=== PATIENT | female | born 1975 | race Caucasian/White ===

== ENCOUNTER → 2020-01-30 16:08 | Outpatient (CLI) | payer OTHER, SELFPAY ==
--- NOTE | ~2020-01-30 | MM_ITS ---
EXAMINATION: MM screening juliano BI w saniya HISTORY: Screening mammogram TECHNIQUE: Craniocaudal and mediolateral oblique 3-D tomosynthesis images were obtained and synthetic 2-D images were generated. CAD analysis was submitted and interpreted. COMPARISON: 09/07/2018, 03/18/2016 bilateral digital screening mammogram examinations BREAST PARENCHYMAL COMPOSITION: There are scattered areas of fibroglandular density. FINDINGS: Occasional small circumscribed low-density opacities with benign mammographic features, sta ble since 09/17/2018. There is no evidence of suspicious mass, calcification, or architectural distor tion to suggest malignancy in either breast. There has been no suspicious interval change. IMPRESSION: 1. No mammographic evidence of malignancy. 2. Recommend routine screening mammography in one year. BI-RADS Category 2: Benign finding(s). Reviewed, dictated and finalized at location A. T TAKER
== END ==
PROVIDERS: Visit Provider Nurse Practitioner Obstetrics & Gynecology
DX: Z12.31 Encounter for screening mammogram for malignant neoplasm of breast (principal)
CPT/HCPCS: 77063; 77067

== ENCOUNTER 2020-11-16 11:58 | Emergency (ER) | payer OTHER, SELFPAY ==
--- NOTE | ~2020-11-16 | XR_ITS ---
XR hand LT min 3V 11/16/2020 12:22 Indication: Left hand pain Procedure: 3 views left hand Comparison: 11/04/2015 Findings: There are degenerative changes of the first CMC, MCP and radiocarpal joints. No fracture, s ubluxation or dislocation. No significant soft tissue abnormality. Impression: 1: No acute bone or joint abnormality. 2: Mild-moderate polyarticular osteoarthritis. Reviewed, dictated and finalized at location A. ISSIONING SPECIALIST Impression: 1: No acute bone or joint abnormality. 2: Mild-moderate polyarticular osteoarthritis.
[2020-11-16 12:05] VITALS: BP 141/74; PULSE 81; RESP 20; TEMP 36.8; O2SAT 100
--- NOTE | 2020-11-16 12:42 | ED.UPPEXIN ---
HPI - Extremity Injury (Upper) General Chief Complaint: Extremity Injury, Upper Stated Complaint: left thumb injury Time Seen by Provider: 11/16/20 12:33 Source: patient and RN notes reviewed Mode of arrival: ambulatory Limitations: no limitations History of Present Illness HPI narrative: Patient presents today with a left thumb injury. States it was hyperextended yesterday while playing with her dog. Denies numbness or tingling in the finger. Currently rates her pain 6/10 and states she wrapped her hand in an David wrap yesterday and took ibuprofen without relief. Previous fracture in multiple places to the same finger several years ago. Related Data Home Medications Medication Instructions Recorded Confirmed levothyroxine [Synthroid] 50 mcg DAILY 11/16/20 11/16/20 Allergies Allergy/AdvReac Type Severity Reaction Status Date / Time No Known Allergies Allergy Verified 11/16/20 12:06 Review of Systems Review of Systems: Narrative: CONSTITUTIONAL: Denies body aches, fever, chills, or sweats. EYES: Denies visual changes, redness, or discharge. ENT: Denies rhinorrhea, congestion, sore throat, or otalgia. CARDIOVASCULAR: Denies chest pain, palpitations, or edema. RESPIRATORY: Denies cough or dyspnea. GASTROINTESTINAL: Denies abdominal pain, nausea, vomiting, or diarrhea. GENITOURINARY: Denies dysuria or hematuria. SKIN: Denies rash, itching, or wounds. MUSCULOSKELETAL: Denies back pain, or myalgia. + Left thumb injury NEUROLOGIC: Denies headache, numbness, tingling, or weakness. PSYCH: Denies depression or anxiety. PMFSH Family History Family History (Updated 06/27/16 @ 23:19 by DOCTOR UNKNOWN) Grandparent Family history of malignant neoplasm of breast Social History Social History Smoking status: Current every day smoker Alcohol intake: current Gender identity (if verbalized by the patient): Female Comments At time of signature, I have reviewed and agree with nursing past medical, surgical, social and family history unless otherwise noted. Please see nursing chart for further information. There is no relevant family history pertinent to the presenting complaint Exam Narrative: Exam Narrative: GENERAL: Well-appearing, well-nourished, and in no acute distress. HEAD: Normocephalic, atraumatic. EYES: EOMI. No redness or drainage. Conjunctivae normal. ENT: Mucous membranes pink and moist. NECK: Normal AROM. CHEST: No respiratory distress. EXTREMITIES: Left thumb: Tenderness to the MCP joint with mild swelling and ecchymosis. PROM without pain, but AROM limited due to pain. No pain to IP joint. Distal sensation intact. Capillary refill normal. Radial pulse normal. SKIN: Warm, dry, no rash. Capillary refill normal. Normal skin turgor. NEURO: No focal deficits. Alert and oriented x3. Gait steady. PSYCH: Normal affect. No signs of depression or anxiety. Course Vital Signs Vital signs: Vital Signs Temperature 98.3 F 11/16/20 12:05 Pulse Rate 81 11/16/20 12:05 Respiratory Rate 20 11/16/20 12:05 Blood Pressure 141/74 H 11/16/20 12:05 Pulse Oximetry 100 11/16/20 12:05 Temperature 98.3 F 11/16/20 12:05 Pulse Rate 81 11/16/20 12:05 Respiratory Rate 20 11/16/20 12:05 Blood Pressure 141/74 H 11/16/20 12:05 Pulse Oximetry 100 11/16/20 12:05 Reviewed. Pt has been instructed to follow up with her PCP regarding her elevated blood pressure today. MDM - Extremity Injury (Upper) Differential Diagnosis Differential diagnosis: Likely finger sprain, dislocation of finger, fracture of hand and other (Finger fracture) Imaging Data Radiologist's impression: ITS Impressions Hand X-Ray 11/16/20 12:25 Impression: 1: No acute bone or joint abnormality. 2: Mild-moderate polyarticular osteoarthritis. Critical Care Time Critical Care Time Critical Care Time: No Discharge Plan Discharge Clinical Impression: Left thumb sprain Qualifiers: Enco
== END 2020-11-16 12:50 | disposition home or self-care (01) ==
PROVIDERS: Emergency Provider Nurse Practitioner; PCP Family Medicine
DX: S63.622A Sprain of interphalangeal joint of left thumb, initial encounter (principal); X50.9XXA Other and unspecified overexertion or strenuous movements or postures, initial encounter; F17.200 Nicotine dependence, unspecified, uncomplicated
CPT/HCPCS: 29130; 73130; 99213; G0463

== ENCOUNTER 2022-04-07 10:01 | Emergency (ER) | payer OTHER, SELFPAY ==
--- NOTE | ~2022-04-07 | XR_ITS ---
EXAMINATION: XR foot RT min 3V DATE: 04/07/2022 10:36 INDICATION: Right foot pain, initial encounter TECHNIQUE: Dorsoplantar, lateral, and oblique views of the right foot were obtained. COMPARISON: 11/04/2015 FINDINGS: There is an oblique lucency at the lateral base of the fifth metatarsal which extends to be joint space. There is mild osteoarthritis of several interphalangeal joints. The bones are otherwise unremarkable. The soft tissues are unremarkable. A plantar calcaneal enthesophyte is noted. IMPRESSION: 1. Oblique lucency of the lateral base of the fifth metatarsal extending to the joint space consisten t with fracture. Clinically correlate for tenderness at this site as there is no evident associated s oft tissue swelling. Reviewed, dictated and finalized at location A. IMPRESSION: 1. Oblique lucency of the lateral base of the fifth metatarsal extending to the joint space consistent with fracture. Clinically correlate for tenderness at t his site as there is no evident associated soft tissue swelling.
[2022-04-07 10:25] VITALS: BP 136/91; PULSE 77; RESP 16; TEMP 36.1
--- NOTE | 2022-04-07 10:25 | ED.LOWEXIN ---
HPI - Extremity Injury (Lower) General Chief Complaint: Extremity Injury, Lower Stated Complaint: rt foot injury,fell Time Seen by Provider: 04/07/22 10:25 Source: patient Mode of arrival: ambulatory Limitations: no limitations History of Present Illness HPI Narrative: 47-year-old female presents with complaint of pain and swelling to right foot. Reports yesterday she was stepping over her dog that was laying in the hallway and her foot slid out of her wedge shoe and caused her to fall. Reports pain to lateral aspect of right foot. Bruising noted. Range of motion and distally neurovascularly intact. Patient presents with postop shoe that she brought from her . States that it is not fitting appropriately. All systems reviewed and negative except as noted above. Related Data Home Medications Medication Instructions Recorded Confirmed levothyroxine [Synthroid] 50 mcg DAILY 11/16/20 04/07/22 Allergies Allergy/AdvReac Type Severity Reaction Status Date / Time No Known Allergies Allergy Verified 04/07/22 10:12 Review of Systems Review of Systems: CONSTITUTIONAL: Denies fever, chills, or sweats. EYES: Denies visual changes, redness, or discharge. ENT: Denies rhinorrhea, congestion, sore throat, or otalgia. CARDIOVASCULAR: Denies chest pain, palpitations, or edema. RESPIRATORY: Denies cough or dyspnea. GASTROINTESTINAL: Denies abdominal pain, nausea, vomiting, or diarrhea. GENITOURINARY: Denies dysuria or hematuria. SKIN: Denies rash or itching. MUSCULOSKELETAL: Reports pain and swelling to lateral aspect of right foot. NEUROLOGIC: Denies headache, numbness, or weakness. PSYCHIATRIC: Denies anxiety or depression. All other systems reviewed are negative, except as documented in HPI. [facility] Family History Family History (Updated 06/27/16 @ 23:19 by DOCTOR UNKNOWN) Grandparent Family history of malignant neoplasm of breast Social History Social History Smoking status: Current every day smoker Alcohol intake: current Gender identity (if verbalized by the patient): Female Comments At time of signature, agree with nursing past medical, surgical, social and family history. There is no relevant family history pertinent to the presenting complaint. Exam Narrative: GENERAL: This is a well-nourished, well-developed patient, in no apparent distress. HEAD: normocephalic, atraumatic. EYES: PERRL. Sclera clear/white. Vision is grossly intact. EARS: External ears normal NOSE: External nose normal NECK: Neck supple, non-tender without lymphadenopathy, masses or thyromegaly. CARDIOVASCULAR: Regular rate and rhythm without murmurs, gallops, or rubs. RESPIRATORY: Clear to auscultation. Breath sounds equal bilaterally. No wheezes, rales, or rhonchi. SKIN: warm, Dry, intact with no suspicious lesions or rash, good texture and turgor. NEURO: awake, alert, and oriented to person, place and time. There were no obvious focal neurologic abnormalities. EXTREMITIES: Swelling and bruising to dorsal and lateral aspect of right foot. There is tenderness to the proximal aspect of the right fifth metatarsal bone. Range of motion intact to right foot and right ankle. Course Course Level of Care: Express Care Visit Vital Signs Vital signs: Reviewed MDM - Extremity Injury (Lower) Lab Data Labs: Discussed x-ray results with patient. Patient given disc with images. Referred to orthopedics. Postop shoe placed by DURAN Galeano. Patient has crutches at home. Patient is aware of diagnosis, understands and agrees to treatment plan. Anticipatory guidance given. Patient agrees to follow-up as directed and is aware of reasons to seek care at the emergency department. Portions of this record may have been created with voice recognition software Imaging Data Attestation: I personally reviewed and interpreted this imaging study as follows: My impression: Agree with radiologist Radiologist's impression: EXAMINATION: XR foot RT
== END 2022-04-07 11:12 | disposition home or self-care (01) ==
PROVIDERS: Emergency Provider Nurse Practitioner Family; PCP Family Medicine
DX: S92.351A Displaced fracture of fifth metatarsal bone, right foot, initial encounter for closed fracture (principal); F17.200 Nicotine dependence, unspecified, uncomplicated; W01.0XXA Fall on same level from slipping, tripping and stumbling without subsequent striking against object, initial encounter
CPT/HCPCS: 73630; 99214; G0463

== ENCOUNTER 2022-06-13 15:40 | Emergency (ER) | payer OTHER, SELFPAY ==
--- NOTE | ~2022-06-13 | XR_ITS ---
XR hand RT min 3V DATE: 06/13/2022 16:20 INDICATION: Distal first digit bitten by dog TECHNIQUE: 3 views COMPARISON: None FINDINGS: Minimal irregularity of the soft tissues of the distal aspect of the first digit. No subcut aneous emphysema or radiopaque soft tissue foreign body is detected. No fracture, dislocation, perios teal reaction or bone destruction. IMPRESSION: Minimal soft tissue irregularity of the distal aspect of the first digit; otherwise no si gnificant radiographic abnormality Reviewed, dictated and finalized at location A. IMPRESSION: Minimal soft tissue irregularity of the distal aspect of the first digit; otherwise no significant radiographic abnormality
[2022-06-13 15:42] VITALS: BP 133/85; PULSE 95; RESP 16; TEMP 36.4; O2SAT 100
[2022-06-13] MEDS: fentaNYL CITRATE INJ (*CRX) 100 MCG/2 ML VIAL 50 MCG IV PUSH (16:09)
--- NOTE | 2022-06-13 16:25 | ED.UPPEXIN ---
HPI - Extremity Injury (Upper) General Chief Complaint: Extremity Injury, Upper Stated Complaint: right thumb injury Time Seen by Provider: 06/13/22 15:56 History of Present Illness HPI narrative: This is a 47-year-old female who presents to the emergency department with dog bite wound to the right thumb. The patient states about 20 minutes prior to arrival, her dogs were fighting, she attempted to break up the dogs, and one bit her right thumb. The nail and end of the finger was torn off. She complains of 8 out of 10, sharp pain, worsened with pressure, without radiation or alleviating factors Her bleeding was immediately controlled by direct pressure. Her wrapped the torn off end of the thumb and brought out with them. She states both dogs are fully vaccinated. She is not sure of the timing of her last tetanus shot. She denies fall, head trauma, loss of consciousness, and denies pain anywhere else. Related Data Home Medications Medication Instructions Recorded Confirmed levothyroxine 50 mcg tablet 50 mcg DAILY 11/16/20 04/07/22 (Synthroid) Allergies Allergy/AdvReac Type Severity Reaction Status Date / Time No Known Allergies Allergy Verified 06/13/22 15:54 Review of Systems Review of Systems: CONSTITUTIONAL: Denies fever, chills, or sweats. EYES: Denies visual changes, redness, or discharge. ENT: Denies rhinorrhea, congestion, sore throat, or otalgia. CARDIOVASCULAR: Denies chest pain, palpitations, or edema. RESPIRATORY: Denies cough or dyspnea. GASTROINTESTINAL: Denies abdominal pain, nausea, vomiting, or diarrhea. GENITOURINARY: Denies dysuria or hematuria. SKIN: Denies rash or itching. MUSCULOSKELETAL: Right thumb pain, denies myalgia. NEUROLOGIC: Denies headache, numbness, dizziness, or weakness. PSYCHIATRIC: Denies anxiety or depression. [facility] Past Medical History Medical History (Updated 06/13/22 @ 23:17 by Johnson Jean-Baptiste MD) Acquired hypothyroidism Acute non-recurrent maxillary sinusitis Body mass index [BMI] 32.0-32.9, adult (05/28/18) Compulsive overeating Dietary counseling and surveillance (05/28/18) SEDRICK (generalized anxiety disorder) GERD with esophagitis Lipid screening Other fatigue Weight gain Family History Family History (Updated 06/27/16 @ 23:19 by DOCTOR UNKNOWN) Grandparent Family history of malignant neoplasm of breast Social History Social History (Updated 06/13/22 @ 23:17 by Johnson Jean-Baptiste MD) Smoking status: Current every day smoker Alcohol intake: current Substance use type: does not use Gender identity (if verbalized by the patient): Female Exam Narrative: GENERAL: Well-appearing, well-nourished, and in no acute distress. HEAD: Normocephalic, atraumatic. EYES: PERRLA and EOMI. ENT: Nares clear, no rhinorrhea or epistaxis. Mucous membranes moist. Oropharynx without tonsillar hypertrophy exudate or other lesions. Bilateral TMs pearly nigram nonbulging NECK: Supple. No adenopathy or masses. No carotid bruits or JVD CHEST: Clear to auscultation. No respiratory distress. No wheezes rales or rhonchi HEART: Regular rate and rhythm. No murmur heard. Normal peripheral pulses. ABDOMEN: Soft, nontender, nondistended, normal active bowel sounds. EXTREMITIES: Avulsion of the tissue of the end of the right thumb, transecting across the middle of fingernail. No noted injury to the nail matrix. Small amount of bleeding noted with exposed bone at the distal phalanx. Normal range of motion. No edema. SKIN: Warm, dry, no rash. NEURO: No focal deficits. Alert and oriented x3. PSYCH: Normal mood and affect. Course Course Emergency Course: 17:00 - Discussed patient with on-call consultation, Dr. Kelly. Discussed management options including suturing of avulsed skin and nail as a biopatch. This was agreed to as the plan. Will discharge after repair with antibiotics and follow-up in plastic surgery. 18:23 - The patient tolerated suturing well. Pl
[2022-06-13] MEDS: ceFAZolin 2 GM/D5W 50 ML 2 GM/50 ML BAG IVPB (16:36)
[2022-06-13] MEDS: TETANUS,DIPHTHERIA,AC PERTUSSIS ADULT (0.5 ML) BOOSTRIX IM (16:36)
[2022-06-13] MEDS: HYDROmorphone HCL INJ (*CRX) 1 MG/ML SYR IM (17:01)
[2022-06-13] MEDS: LIDOCAINE HCL 1% PF 30 ML VIAL (17:11)
[2022-06-13 18:33] VITALS: BP 132/78; PULSE 76; RESP 16; TEMP 36.3; O2SAT 100
== END 2022-06-13 18:34 | disposition home or self-care (01) ==
PROVIDERS: Emergency Provider Preventive Medicine Aerospace Medicine; PCP Family Medicine
DX: S61.151A Open bite of right thumb with damage to nail, initial encounter (principal); Z23 Encounter for immunization; E03.9 Hypothyroidism, unspecified; K21.00 Gastro-esophageal reflux disease with esophagitis, without bleeding; F17.200 Nicotine dependence, unspecified, uncomplicated; W54.0XXA Bitten by dog, initial encounter
CPT/HCPCS: 12001; 73130; 90471; 90715; 96365; 96372; 96375; 99284; J0690; J1170; J3010

== ENCOUNTER → 2023-04-28 15:54 | Outpatient (CLI) | payer BC, SELFPAY ==
--- NOTE | ~2023-04-28 | MM_ITS ---
EXAMINATION: MM screening juliano BI w saniya HISTORY: Screening mammogram TECHNIQUE: Craniocaudal and mediolateral oblique 3-D tomosynthesis images were obtained and synthetic 2-D images were generated. CAD analysis was submitted and interpreted. COMPARISON: 01/30/2020, 09/07/2018, 03/18/2016 and lateral screening mammogram examinations BREAST PARENCHYMAL COMPOSITION: There are scattered areas of fibroglandular density. FINDINGS: There is no evidence of suspicious mass, calcification, or architectural distortion to sugg est malignancy in either breast. There has been no suspicious interval change. IMPRESSION: 1. No mammographic evidence of malignancy. 2. Recommend routine screening mammography in one year. BI-RADS Category 1: Negative Reviewed, dictated and finalized at location A.
== END ==
PROVIDERS: PCP Family Medicine; Visit Provider Nurse Practitioner Obstetrics & Gynecology
DX: Z12.31 Encounter for screening mammogram for malignant neoplasm of breast (principal)
CPT/HCPCS: 77063; 77067

== ENCOUNTER 2023-06-24 09:28 | Outpatient (CLI) | payer BC, SELFPAY ==
[2023-06-24 10:07] LABS: Hematocrit 41.6 % (37.0-47.0); Hemoglobin 14.2 g/dL (12.0-15.0)
== END 2023-06-24 09:29 | disposition home or self-care (01) ==
LOC: ANHLAB 09:29
PROVIDERS: PCP Family Medicine; Visit Provider Obstetrics & Gynecology
DX: R58 Hemorrhage, not elsewhere classified (principal)
CPT/HCPCS: 36415; 85014; 85018

== ENCOUNTER 2023-06-26 02:33 | Day surgery (SDC) | payer BC, SELFPAY ==
--- NOTE | 2023-06-19 16:50 | PC.NURSE ---
Report to the Outpatient Waiting Room, entrance under the green pavilion located off [facility], at 0730 on 06-26-23. Planned Procedure Time: 0930. Time changes happen often and if your time is changed the preop area will call you the afternoon before. - You and your visitor will be asked to self-screen and do not enter if you have any COVID symptoms. - A mask is optional within the hospital at this time. Patients may have clear liquids (water, carbonated beverages, clear teas, apple juice) until 3 hours prior to surgery with a maximum of 20 ounces. 0630 - No food from midnight until time of surgery - Infants may have breast milk until 4 hours before surgery, formula 6 hours prior to surgery. - Children will be allowed to drink immediately following surgery. If applicable, please bring a bottle or sippy cup to assist with drinking. Juice, water, soda, and popsicles are readily available. For infants on formula, please bring formula the day of surgery. Pacifiers are allowed. Take the following medications with a SIP of water the morning of surgery: levothyroxine DO NOT STOP ANY OF YOUR OTHER PRESCRIPTION MEDICATIONS PRIOR TO SURGERY ?EXCEPT THE FOLLOWING Medications to discontinue per physician: vitamins and supplements Date to take last dose: 06-23-23 Please no make-up, nail arabic, hairspray, perfume, deodorant, or body powder the day of surgery. No jewelry (including any body piercings) or valuables the day of surgery, leave them at home. Please take a shower or bath the night before, or the morning of, surgery with an antibacterial soap. Wear comfortable, loose fitting clothing. Children are encouraged to wear pajamas. - Jewelry must be removed prior to entering the operating room. Rings and piercings that are not removed may be cut off. - The hospital will not accept responsibility for valuables. - Please leave all valuables, including medications, at home the day of surgery. If you are going home after surgery, a licensed funeral limousine driver must drive you home. - NO public transportation without another adult if you receive anesthesia. - We recommend that an adult stay with you for 24 hours following discharge. - We also recommend that you do not drive, make important decision, drink alcoholic beverages, or take any drugs that were not prescribed by your health care provider for at least 24 hours after your discharge time. For Pediatric surgeries, we recommend two adults accompany the child home. Follow any additional instructions given to you from your surgeon. If you or anyone in your household have experienced Covid symptoms in the past week, please notify your surgeon or the nurse liaison at the phone number below for possible testing. Telephone instructions given to Christin Montes De Oca and asked if any additional questions and then verbalized understanding. Patient advised to call surgeon office or pre surgery nurse liaison [phone] if any additional questions.
--- NOTE | 2023-06-23 16:33 | PM.IMHP ---
H&P: HPI History of Present Illness Date/Time: 06/23/23 16:33 Chief Complaint: excessive vaginal bleeding Narrative: this is a 40 2 para 2 admitted for hysteroscopy D&C and ablation. She had extremely heavy periods. She had an ultrasound that showed thickened endometrium. She had a negative endometrial biopsy. Risks and benefits reviewed including not exclusive of , aspiration pneumonia, bleeding, transfusion, perforation under bowel, bladder, ureters, or other internal organs the need for open laparotomy. She received the ACOG handouts entitled hysteroscopy as well as dilatation curettage respectively. She received the Estrella handout. She had all questions answered and asked to proceed PMFSH Past Medical History Medical History Acquired hypothyroidism Acute non-recurrent maxillary sinusitis Body mass index [BMI] 32.0-32.9, adult (05/28/18) Compulsive overeating Dietary counseling and surveillance (05/28/18) SEDRICK (generalized anxiety disorder) GERD with esophagitis Lipid screening Other fatigue Weight gain Family History Family History Grandparent Family history of malignant neoplasm of breast Social History Social History Social History: Smoking packs per day: 0.25 Smoking cigarettes per day: 5.0 Years smoked: 5 Smoking pack-years: 1.25 Smoking status: Former smoker Tobacco type: cigarettes Second hand tobacco smoke exposure: No Smoking end date: 11/30/17 Alcohol intake: current Drinks per week: 2 Alcohol use details: occasionally Substance use: current Substance use type: marijuana Other substance usage details: gummies occasionally Living arrangements: with family Occupation/Education: occupation Gender identity (if verbalized by the patient): Female Sexual Orientation (if Verbalized by the Patient): Straight or Heterosexual Spiritual care concerns: No Meds Home Medications and Allergies Home Medications Medication Instructions Recorded Confirmed Type levothyroxine 50 mcg tablet 50 mcg PO DAILY 11/16/20 06/19/23 History (Synthroid) Lactobacillus 1 cap PO DAILY 06/19/23 06/19/23 History acidophilus-Bifidobac.animalis 2.5 billion cell capsule (Daily Probiotic) [id number] 200 mcg-vit K 100 1 cap PO DAILY 06/19/23 06/19/23 History mcg-lycop 500 [id number] capsule (Daily Multivitamin) tumeric 100 mg-jorge 150 mg-olive 1 cap PO DAILY 06/19/23 06/19/23 History 50 mg-oreg 150 mg-caprylate capsule vitamin B complex 1 tablet PO DAILY 06/19/23 06/19/23 History Allergies Allergy/AdvReac Type Severity Reaction Status Date / Time No Known Allergies Allergy Verified 06/19/23 16:19 Exam Const: General: cooperative, healthy appearing and comfortable Nutritional Appearance: average body habitus Orientation/consciousness: oriented to person, oriented to place and oriented to time Resp: Effort & Inspection: normal respiratory effort Cardio: Rate: regular rate Rhythm: regular rhythm Heart sounds: S1 normal heart sound present and S2 normal heart sound present GI: Inspection: normal to inspection : External Female Exam: normal external appearance Speculum Exam - Vagina: normal appearance of the vagina Speculum Exam - Cervix: normal appearance of the cervix Bimanual exam- vagina & uterus: non-tender Bimanual Exam- Adnexa, other: normal adnexae Assessment and Plan Assessment and plan (1) Vaginal bleeding: Code(s): N93.9 - Abnormal uterine and vaginal bleeding, unspecified Status: Acute Plan hysteroscopy/ dilatation curettage/Estrella ablation
--- NOTE | 2023-06-25 08:43 | WPDANESEPPF ---
Anes - Initial Pre Proc Eval Procedure: Operation Date: 06/26/23 09:30 Proposed Procedures p Hysteroscopy Dilation and Curettage, Estrella Endometrial Ablation - Andrew Eller MD Date/Time: 06/25/23 08:43 Surgeon: Andrew Eller MD Pre Op Diagnosis: Excessive Bleeding Patient Data Age: 48 Gender: F Height: Weight: Allergies Allergy/AdvReac Type Severity Reaction Status Date / Time No Known Allergies Allergy Verified 06/19/23 16:19 Home Medications Medication Instructions Recorded Confirmed Type levothyroxine 50 mcg tablet 50 mcg PO DAILY 11/16/20 06/26/23 History (Synthroid) Lactobacillus 1 cap PO DAILY 06/19/23 06/26/23 History acidophilus-Bifidobac.animalis 2.5 billion cell capsule (Daily Probiotic) [id number] 200 mcg-vit K 100 1 cap PO DAILY 06/19/23 06/26/23 History mcg-lycop 500 [id number]-hvrtaz-N40 capsule (Daily Multivitamin) tumeric 100 mg-jorge 150 mg-olive 1 cap PO DAILY 06/19/23 06/26/23 History 50 mg-oreg 150 mg-caprylate capsule vitamin B complex 1 tablet PO DAILY 06/19/23 06/26/23 History hydrocodone 5 mg-acetaminophen 325 1 tablet PO Q4H PRN pain #20 tabs 06/26/23 Rx mg tablet Patient hx anesthesia problems: none Family hx anesthesia problems: none Results Review: All pre-operative results and documents have been reviewed as part of the pre-operative evaluation. [facility] Past Medical History Medical History Acquired hypothyroidism Acute non-recurrent maxillary sinusitis Body mass index [BMI] 32.0-32.9, adult (05/28/18) Compulsive overeating Dietary counseling and surveillance (05/28/18) SEDRICK (generalized anxiety disorder) GERD with esophagitis Lipid screening Other fatigue Weight gain Family History Family History Grandparent Family history of malignant neoplasm of breast Social History Social History Social History: Smoking packs per day: 0.25 Smoking cigarettes per day: 5.0 Years smoked: 5 Smoking pack-years: 1.25 Smoking status: Former smoker Tobacco type: cigarettes Second hand tobacco smoke exposure: No Smoking end date: 11/30/17 Alcohol intake: current Drinks per week: 2 Alcohol use details: occasionally Substance use: current Substance use type: marijuana Other substance usage details: gummies occasionally Living arrangements: with family Occupation/Education: occupation Gender identity (if verbalized by the patient): Female Sexual Orientation (if Verbalized by the Patient): Straight or Heterosexual Spiritual care concerns: No Anes - Eval Final PreProcedure Day of Procedure 06/25/23 08:43 Patient weight: obese Heart: regular rate and rhythm Lungs: clear to auscultation Airway: Mallampati scale class II Neurological: alert and oriented Last oral intake: >/= 8 hours ASA classification: II Emergent: no Anesthetic plan: proceed Anesthesia type and monitoring: general GIVS and standard monitoring Results Review: All pre-operative results and documents have been reviewed as part of the pre-operative evaluation. Informed Consent: The patient's anesthetic plan and its attendant risks and benefits were discussed with the patient/family/POA. Questions were solicited and answers provided to the satisfaction of the patient/family/POA.
--- NOTE | 2023-06-26 07:18 | WPDHPUPDATE1 ---
History and Physical Update Update Date/Time: 06/26/23 07:18 History and Physical has been reviewed, including an updated exam of the patient. There are NO changes in the patient's condition. Risks, benefits, and alternatives have been discussed and questions answered. Patient agrees to proceed with procedure.
[2023-06-26 08:00] VITALS: BP 127/86; PULSE 72; RESP 16; TEMP 36.9; O2SAT 99
[2023-06-26] MEDS: ACETAMINOPHEN 500 MG TABLET 1000 MG PO (08:00)
[2023-06-26] MEDS: LACTATED RINGERS 1,000 ML 30 ML IV CONT (08:00)
[2023-06-26] MEDS: LIDOCAINE HCL 1% LOCAL INJ 10 ML VIAL INFILTRATE (10:10)
--- NOTE | 2023-06-26 10:23 | P.OP_ITS ---
Procedure Note - Detailed Date of Procedure 06/26/23 Pre-op Diagnosis Excessive Bleeding Post-op Diagnosis Other (A excessive bleeding/ uterine) Procedure Performed hysteroscopy dilatation curettage/ polypectomy/ Estrella ablation Surgeon Andrew Eller MD Anesthesia MAC and Local Indications this 40-year-old with excessive Findings uterus sounded 9cm. The endometrial tissue seen. Uterine polyp was seen the uterine fundus Description of Procedure the patient was prepped draped in normal sterile fashion placed in dorsal lithotomy position. Under excellent IV sedation weighted speculum placed in po sterior fornix vagina. Anterior lip of the cervix grasped with single-tooth tenaculum. 2.5cc 1% xylocaine anesthesia placed at 2, 4, 8, 10:00 a.m. of the cervix. Uterus sounded 9cm. Serial dilatation with fragmented dilators performed followed passage of the reviewed a hysteroscope. The uterine polyp was seen using the polyp forceps resector this was removed in toto. Uterus was then scraped over the entire 360? until good grating sound was heard. This instrument was withdrawn and Estrella instrument was placed at the appropriate settings. It was burned for 120seconds removed. Blood loss estimated at5cc all sponge, needle, instrument counts were correct. There were no immediate complications Estimated Blood Loss 5 Drains No Packing No Pathology Yes Complications No immediate complications Condition Stable Disposition PACU
[2023-06-26 10:25] VITALS: BP 95/72; PULSE 106; RESP 12; O2SAT 100
[2023-06-26] MEDS: oxyCODONE HCL (*CRX) 5 MG TAB IR PO (10:45)
[2023-06-26 10:55] VITALS: BP 104/84; PULSE 66; RESP 66
== END 2023-06-26 11:21 | disposition home or self-care (01) ==
PROVIDERS: PCP Family Medicine; Visit Provider Obstetrics & Gynecology
PROC: 0U5B8ZZ Destruction of Endometrium, Via Natural or Artificial Opening Endoscopic (ICD-10-PCS; CPT 58563; principal; 2023-06-26 09:30)
DX: N93.9 Abnormal uterine and vaginal bleeding, unspecified (principal); N84.0 Polyp of corpus uteri; E03.9 Hypothyroidism, unspecified; Z87.891 Personal history of nicotine dependence; F12.90 Cannabis use, unspecified, uncomplicated; E66.9 Obesity, unspecified
CPT/HCPCS: 58563; 88305; A9270; J2250; J2405; J2704; J3010; J7120